=== PATIENT | female | born 1970 | race Native Hawaiian/Other Pacific Islander ===

== ENCOUNTER 2018-09-07 18:07 | Emergency (ER) | payer OTHER ==
[2018-09-07] MEDS ORDERED: NACL 0.9% IR ONE (18:10)
[2018-09-07] MEDS ORDERED: XYLOCAINE 1% 20 mL INFILTRATI ONE (18:10)
[2018-09-07] MEDS ORDERED: BOOSTRIX IM ONE (18:10)
[2018-09-07] MEDS ORDERED: IBUPROFEN PO ONE (18:10)
[2018-09-07] MEDS ORDERED: TRIPLE ANTIBIOTIC TP ONE (18:10)
--- NOTE | 2018-09-07 18:11 | Event Note ---
ED Screening Note ED Screening Note: lac rle today with knife ?tdap date bleeding controlled This initial assessment/diagnostic orders/clinical plan/treatment(s) is/are subject to change based on patients health status, clinical progression and re- assessment by fellow clinical providers in the ED. Further treatment and workup at subsequent clinical providers discretion. Patient/guardian urged not to elope from the ED as their condition may be serious if not clinically assessed and managed. Initial orders include:
[2018-09-07 18:17] VITALS: BP 148/63
--- NOTE | 2018-09-07 19:34 | Emergency Department Report ---
- General Chief Complaint: Wound/Laceration Stated Complaint: CUT ON R LEG Time Seen by Provider: 09/07/18 18:10 Source: patient, family, ancillary specialist (security simone for gibraltarian translation ) Mode of arrival: Wheelchair Limitations: Language Barrier - History of Present Illness Initial Comments: Pt is a 48 yo female who presents to the ED with c/o a laceration to the RLE that occurred at 4:40 PM today. 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 She denies anything getting into the wound. She is unsure of her last tetanus. she denies any leg pain, she is able to move all of her toes, she is ambulatory without difficulty. PMHx of DM and HTN. She denies any allergies. - Related Data Allergies Allergy/AdvReac Type Severity Reaction Status Date / Time No Known Allergies Allergy Verified 09/07/18 18:22 ED Review of Systems ROS: Stated complaint: CUT ON R LEG Other details as noted in HPI Comment: All other systems reviewed and negative ED Past Medical Hx - Past Medical History Previous Medical History?: Yes Hx Diabetes: Yes - Surgical History Past Surgical History?: No - Social History Smoking Status: Never Smoker Substance Use Type: None ED Physical Exam - General Limitations: Language Barrier General appearance: alert, in no apparent distress - Head Head exam: Present: atraumatic, normocephalic - Eye Eye exam: Present: normal appearance - ENT ENT exam: Present: mucous membranes moist - Extremities Exam Extremities exam: Present: other (FROM of the RLE, neurovascularly intact ) - Neurological Exam Neurological exam: Present: alert, oriented X3 - Psychiatric Psychiatric exam: Present: normal affect, normal mood - Skin Skin exam: Present: other (8cm laceration to the RLE just superior to the lateral malleolus, bleeding controlled with gauze, no tendon or muscle involvement, no foreign body visualized ) ED Course Vital Signs 09/07/18 18:14 Temperature 97.9 F Pulse Rate 77 Respiratory 18 Rate Blood Pressure 148/63 [Right] O2 Sat by Pulse 100 Oximetry - Laceration /Wound Repair Right Lower Leg Wound Location: lower extremity (right ankle just superior to the right lateral malleolus ) Wound Length (cm): 8 Wound's Depth, Shape: superficial Wound Explored: clean Irrigated w/ Saline (ccs): 50 Betadine Prep?: Yes Anesthesia: 1% Lidocaine Volume Anesthetic (ccs): 6 Wound Debrided: minimal Wound Repaired With: sutures Suture Size/Type: 4:0, proline Number of Sutures: 9 Layer Closure?: No Sterile Dressing Applied?: Yes Progress: irrigated with saline, prepped with betadine, sterile dressings applied, 1% lidocaine without epi, 6 cc used, 4-0 prolene used to suture, 9 sutures applied, pt tolerated well, no complications, bleeding controlled, sterile dressing applied, neurovascularly intact before and after procedure. ED Medical Decision Making - Medical Decision Making Pt is a 48 yo female who presents to the ED with c/o a laceration to the RLE that occurred at 4:40 PM today. 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 She denies anything getting into the wound. She is unsure of her last tetanus. she denies any leg pain, she is able to move all of her toes, she is ambulatory without difficulty. PMHx of DM and HTN. She denies any allergies. 8 cm laceration present to the RLE just superior to the right lateral malleolus, neurovascularly intact, no tendon or muscle involvement, no foreign body, closed per procedure note. pt given tetanus immunization. keep area clean and dry. may wash around wound with soap and water and immediately dry. sutures will need to be removed in 7 days. may return to the emergency room or your primary care doctor for removal. follow up with your primary care doctor in the next 3-5 days. return to the emergency room immediately if begin experiencing any new or worsening symptoms or see signs of infection. all translated by security Simone for gibraltarian translation Critical care attestation.: If time is entered above; I have spent that time in minutes in the direct care of this critically ill patient, excluding procedure time. ED Disposition Clinical Impression: Laceration of right lower leg Qualifiers: Encounter type: initial encounter Qualified Code(s): S81.811A - Laceration without foreign body, right lower leg, initial encounter Disposition: TO HOME OR SELFCARE Is pt being admited?: No Does the pt Need Aspirin: No Condition: Stable Instructions: Suture Care (ED), Laceration (ED) Additional Instructions: keep area clean and dry. may wash around wound with soap and water and immediately dry. sutures will need to be removed in 7 days. may return to the emergency room or your primary care doctor for removal. follow up with your primary care doctor in the next 3-5 days. return to the emergency room immediately if begin experiencing any new or worsening symptoms or see signs of infection. Referrals: [facility] [Outside] - 3-5 Days [facility] [Provider Group] - 3-5 Days Time of Disposition: 21:02 Print Language: [place]
== END 2018-09-07 21:32 | disposition home or self-care (01) ==
LOC: ED 18:07
DX: S81.811A Laceration without foreign body, right lower leg, initial encounter (principal); E11.9 Type 2 diabetes mellitus without complications; W26.8XXA Contact with other sharp object(s), not elsewhere classified, initial encounter; Y93.89 Activity, other specified; Y92.89 Other specified places as the place of occurrence of the external cause; Y99.8 Other external cause status
CPT/HCPCS: 90471; 90715; A6250

== ENCOUNTER 2018-09-14 11:22 | Emergency (ER) | payer OTHER ==
[2018-09-14 11:39] VITALS: BP 145/107
--- NOTE | 2018-09-14 11:57 | Emergency Department Report ---
- General Chief Complaint: Laceration/Recheck/Suture Stated Complaint: (L) LEG LAC/PAIN WORSEN Time Seen by Provider: 09/14/18 11:56 Source: patient, women designer (language line used for yakut interpretation ) Mode of arrival: Ambulatory Limitations: Language Barrier (language line used for yakut interpretation ) - History of Present Illness Initial Comments: Pt is a 48 yo female who presents to the ED for a suture removal. Pt had a laceration to the RLE just proximal to the right ankle and had a suture repair on 09/07/18. Pt states for the last three days she has noticed a small amount of redness around the wound. She states she has some discomfort around the laceration but no pain in the leg. She denies any drainage. She denies any fever. She has a PMHx of HTN and DM. States she did not take her BP medication today. Pt has not followed up with her PCP as she was advised. - Related Data Previous Rx's Medication Instructions Recorded Last Taken Type Sulfamethoxazole/Trimethoprim 1 each PO BID 7 Days #14 tablet 09/14/18 Unknown Rx [Bactrim DS TAB] Allergies Allergy/AdvReac Type Severity Reaction Status Date / Time No Known Allergies Allergy Verified 09/07/18 18:22 ED Review of Systems ROS: Stated complaint: (L) LEG LAC/PAIN WORSEN Other details as noted in HPI Comment: All other systems reviewed and negative ED Past Medical Hx - Past Medical History Previous Medical History?: Yes Hx Diabetes: Yes - Social History Smoking Status: Never Smoker - Medications Home Medications: Home Medications Medication Instructions Recorded Confirmed Last Taken Type Sulfamethoxazole/Trimethoprim 1 each PO BID 7 Days #14 tablet 09/14/18 Unknown Rx [Bactrim DS TAB] ED Physical Exam - General Limitations: No Limitations General appearance: alert, in no apparent distress - Head Head exam: Present: atraumatic, normocephalic - Eye Eye exam: Present: normal appearance, PERRL - ENT ENT exam: Present: mucous membranes moist - Respiratory Respiratory exam: Absent: respiratory distress - Neurological Exam Neurological exam: Present: alert, oriented X3 - Psychiatric Psychiatric exam: Present: normal affect, normal mood - Skin Skin exam: Present: other (laceration to the RLE just proximal to the right ankle is clean, dry, well proximated, very small area of opening where scabbing is currently taking place, small 2 cm area of erythema to the left side of the wound, no drainage, no fluctuance, no induration, no fluctuance, some increased warmth, no tracking erythema down the LE, FROM of the right ankle, neurovascularly intact ) ED Course Vital Signs 09/14/18 11:30 Temperature 98.3 F Pulse Rate 94 H Respiratory 16 Rate Blood Pressure 145/107 O2 Sat by Pulse 98 Oximetry ED Medical Decision Making - Medical Decision Making Pt is a 48 yo female who presents to the ED for a suture removal. Pt had a laceration to the RLE just proximal to the right ankle and had a suture repair on 09/07/18. Pt states for the last three days she has noticed a small amount of redness around the wound. She states she has some discomfort around the laceration but no pain in the leg. She denies any drainage. She denies any fever. She has a PMHx of HTN and DM. States she did not take her BP medication today. Pt has not followed up with her PCP as she was advised. on exam: laceration to the RLE just proximal to the right ankle is clean, dry, well pr oximated, very small area of opening where scabbing is currently taking place, small 2 cm area of erythema to the left side of the wound, no drainage, no fluctuance, no induration, no fluctuance, some increased warmth, no tracking erythema down the LE, FROM of the right ankle, neurovascularly intact. appears to have very small area of cellulitis. pt is afebrile no tachycardia. pt blood glucose is 265 and BP is elevated, discussed with pt in detail the importance of follow up with a primary care doctor in the next 2-3 days for better management of her blood sugar and blood pressure. discussed with pt that right leg would need to be reevaluated in the next 2-3 days. pt placed on bactrim, advised to take as prescribed. discussed with pt to return to the ED immediately for any new or worsening symptoms or worsening signs of infection. advised to keep area clean and dry. wash with soap and water and immediately dry. no pool or hot tub or immersing in water. all discussion took place through the language line Critical care attestation.: If time is entered above; I have spent that time in minutes in the direct care of this critically ill patient, excluding procedure time. ED Disposition Clinical Impression: Encounter for removal of sutures Cellulitis Qualifiers: Site of cellulitis: extremity Site of cellulitis of extremity: lower extremity Laterality: right Qualified Code(s): L03.115 - Cellulitis of right lower limb Disposition: TO HOME OR SELFCARE Is pt being admited?: No Does the pt Need Aspirin: No Condition: Stable Instructions: Suture Removal (ED), Cellulitis (ED) Additional Instructions: Please take all medication as prescribed to completion. It is very important that you follow up with a primary care doctor in the next 2-3 days for reevaluation of your leg, to discuss your blood pressure, and to discuss your b lood sugar. your blood sugar and blood pressure were both elevated today. return to the emergency room immediately for any new or worsening symptoms or if you begin to have worsening redness, worsening pain, fever, or see pus drainage/ Prescriptions: Sulfamethoxazole/Trimethoprim [Bactrim DS TAB] 1 each PO BID 7 Days #14 tablet Referrals: [facility] [Outside] - 2-3 Days [facility] [Outside] - 2-3 Days [facility] [Provider Group] - 2-3 Days Time of Disposition: 12:10 Print Language: [place]OR[place]
== END 2018-09-14 12:57 | disposition home or self-care (01) ==
LOC: ED 11:22
DX: L03.115 Cellulitis of right lower limb (principal); E11.9 Type 2 diabetes mellitus without complications
CPT/HCPCS: 82962; 99283